=== PATIENT | female | born 1985 | race Caucasian/White ===

== ENCOUNTER 2016-12-04 14:07 | Emergency (ER) ==
--- NOTE | 2016-12-04 14:47 | PROVIDER DOCUMENTATION ---
HPI-Neurological Disorder - General Source: patient, family - History of Present Illness-Neuro Onset/Duration: reports: just prior to arrival Timing: reports: resolved prior to arrival Context: reports: seizure activity Cognitive Baseline: alert, oriented x3 Associated Symptoms: reports: headache, decreased ability to walk or stand, dizziness, nausea Similar Symptoms Previously?: Yes Recently seen or treated by another doctor?: Yes (Being treated by Dr. Holder) - Seizure First time to have a seizure?: No Witnessed seizure?: Yes How many seizure episodes?: 2 Duration of episode? (mins): 4 Episode Frequency: occasional episodes Preceding symptoms/context:: other (stress) Character of Seizure: reports: lost consciousness Seizure related injury: mouth (trauma to right lateral tongue) <Stephani Urias - Last Filed: 12/04/16 15:42> <Marcel Ortiz - Last Filed: 12/04/16 17:02> - General Chief Complaint: Seizure Stated Complaint: seizure Time Seen by Provider: 12/04/16 14:28 Allergies/Adverse Reactions: Patient Allergies Allergy/AdvReac Type Severity Reaction Status Date / Time erythromycin base Allergy Mild RASH Verified 12/04/16 14:11 [Erythromycin Base] ketorolac tromethamine * Allergy RASH Verified 12/04/16 14:11 [From Toradol] tramadol HCl * [From Ultram] Allergy Unknown Verified 12/04/16 14:11 vancomycin Allergy Unknown Verified 12/04/16 14:11 Home Medications: Home Medication List Medication Instructions Recorded Confirmed Last Taken Type Gabapentin [Neurontin] 300 mg PO DAILY #30 capsule 12/04/16 Unknown Rx - History of Present Illness-Neuro Nature of Presenting Problem: 30 year old female presents to the ER via EMS with complaint of seizure. Pt states she does not remember the seizure but mother states she started twitching , shaking, fell to the floor and had purple lips. Pt is complaining of headache and weakness. Has a history of seizures but this was the worst one yet. States she is out of her seizure medication and has been for over a year. (Stephani Urias) Review of Systems - Adult - REVIEW OF SYSTEMS - ADULT Constitutional: denies: chills, fever Neurological: reports: dizziness/vertigo, headache/migraines, seizure <Stephani Urias - Last Filed: 12/04/16 15:42> Past History - Adult - PAST MEDICAL HISTORY-ADULT Review of Records: reports: Nursing Assessment Review, Medications Reviewed Major Childhood Illnesses: reports: denies history Cardiovascular: reports: denies history Respiratory: reports: denies history Gastrointestinal: reports: denies history Obstetrical/Gynecological: reports: denies history Genitourinary: reports: denies history Musculoskeletal: reports: denies history Neurological: reports: Seizures/Epilepsy Endocrine/Immune: reports: denies history Other Conditions: reports: MRSA (hospitalized) - PRIOR SURGERIES/PROCEDURES Surgical/Procedure History: reports: BTL, tonsillectomy - IMMUNIZATION STATUS Childhood Immunizations: UTD, See Nurse Assessment Flu Vaccine: See Nurse Assessment - FAMILY HISTORY Family History: reviewed, not pertinent <Stephani Urias - Last Filed: 12/04/16 15:42> Physical Exam- Neurological - Physical Exam-Neuro General Appearance: alert, no apparent distress Eye Exam: bilateral eye: normal inspection, PERRL HENMT: moist mucous membranes, normal ENT inspection Head Injury: no evidence of injury. 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 Exam: normal hearing, normal speech Coordination/Gait: normal finger to nose, negative Romberg's sign Motor/Sensory: no motor deficit, no sensory deficit Neurologic: grossly normal, no motor/sensory deficits Integumentary: normal color, warm/dry Psych/Mental Status: normal mood/affect, normal thought content, normal thought process, oriented x 3 - Glascow Coma Scale Best Eye Response: (4) open spontaneously Best Verbal Response: (5) oriented Best Motor Response: (6) obeys commands <Stephani Urias - Last Filed: 12/04/16 15:42> Progress - REASSESSMENT Reassessment #1 Time Reassessed: 03:10 Status: worsening Reassessment Comment: Pt had 2nd seizure, lasted approx 1 min - EKG 1 Time of EKG reading by physician:: 15:16 EKG Read and Signed by:: Anastacio Perry EKG Interpretation (*Must complete 3 of following elements*): Normal Rate: 114 Rhythm: sinus tachycardia [place]: normal <Stephani Urias - Last Filed: 12/04/16 15:42> <Marcel Ortiz - Last Filed: 12/04/16 17:02> - PLAN OF CARE/RESULTS Progress/Plan/Lab Results: Laboratory Tests 12/04/16 12/04/16 12/04/16 14:53 14:53 15:30 WBC RBC Hgb Hct MCV MCH MCHC RDW Std Deviation Plt Count MPV Immature Gran % (Auto) Neut % (Auto) Lymph % (Auto) [place] % (Auto) Eos % (Auto) Baso % (Auto) Immature Gran # (Auto) Neut # (Auto) Lymph # (Auto) [place] # (Auto) Eos # (Auto) Baso # (Auto) PT INR APTT (Factor Assay) Sodium 137 Potassium 3.0 L Chloride 101 Carbon Dioxide 16 L Anion Gap 20 BUN 4 L Creatinine 0.7 Estimated GFR/1.73 m2 > 60 BUN/Creatinine Ratio 6 Glucose 120 H Calculated Osmolality 272 Calcium 9.3 Total Bilirubin 0.30 AST 16 ALT 13 Alkaline Phosphatase 61 Total Protein 7.1 Albumin 4.7 Globulin 2.0 Albumin/Globulin Ratio 2.0 Plasma Lactate Urine Source CLEAN CATCH Urine Color YELLOW Urine Clarity CLEAR Urine pH 7.0 Ur Specific [place] 1.015 Urine Protein NEGATIVE Urine Ketones NEGATIVE Urine Blood 1+ A Urine Nitrite NEGATIVE Urine Bilirubin NEGATIVE Urine Urobilinogen NORMAL Urine Microscopic RBC <10 Urine WBC NEGATIVE Urine Microscopic WBC <10 Ur Epithelial Cells <10 Urine Glucose NEGATIVE Urine Opiates Screen NONE DETECTED Ur Oxycodone Screen NONE DETECTED Urine Methadone Screen NONE DETECTED Ur Barbituates Screen NONE DETECTED Ur Tricyclics Screen NONE DETECTED Ur Phencyclidine Scrn NONE DETECTED Ur Amphetamines Screen PRESUMPTIVE POSITIVE A U Methamphetamines Scrn NONE DETECTED Urine MDMA Screen NONE DETECTED U Benzodiazepines Scrn PRESUMPTIVE POSITIVE A Urine Cocaine Screen NONE DETECTED U Cannabinoids Screen NONE DETECTED Plasma/Serum Ethyl Alc 12/04/16 12/04/16 12/04/16 15:30 15:30 15:30 WBC 9.36 RBC 4.19 L Hgb 13.4 Hct 40.0 MCV 95.5 MCH 32.0 H MCHC 33.5 RDW Std Deviation 12.3 Plt Count 295 MPV 11.7 H Immature Gran % (Auto) 0.1 Neut % (Auto) 75.9 H Lymph % (Auto) 19.1 L [place] % (Auto) 4.2 Eos % (Auto) 0.4 Baso % (Auto) 0.3 Immature Gran # (Auto) 0.01 Neut # (Auto) 7.10 H Lymph # (Auto) 1.79 [place] # (Auto) 0.39 Eos # (Auto) 0.04 Baso # (Auto) 0.03 PT 14.3 INR 1.08 APTT (Factor Assay) 28.8 Sodium Potassium Chloride Carbon Dioxide Anion Gap BUN Creatinine Estimated GFR/1.73 m2 BUN/Creatinine Ratio Glucose Calculated Osmolality Calcium Total Bilirubin AST ALT Alkaline Phosphatase Total Protein Albumin Globulin Albumin/Globulin Ratio Plasma Lactate Urine Source Urine Color Urine Clarity Urine pH Ur Specific [place] Urine Protein Urine Ketones Urine Blood Urine Nitrite Urine Bilirubin Urine Urobilinogen Urine Microscopic RBC Urine WBC Urine Microscopic WBC Ur Epithelial Cells Urine Glucose Urine Opiates Screen Ur Oxycodone Screen Urine Methadone Screen Ur Barbituates Screen Ur Tricyclics Screen Ur Phencyclidine Scrn Ur Amphetamines Screen U Methamphetamines Scrn Urine MDMA Screen U Benzodiazepines Scrn Urine Cocaine Screen U Cannabinoids Screen Plasma/Serum Ethyl Alc 12/04/16 15:38 WBC RBC Hgb Hct MCV MCH MCHC RDW Std Deviation Plt Count MPV Immature Gran % (Auto) Neut % (Auto) Lymph % (Auto) [place] % (Auto) Eos % (Auto) Baso % (Auto) Immature Gran # (Auto) Neut # (Auto) Lymph # (Auto) [place] # (Auto) Eos # (Auto) Baso # (Auto) PT INR APTT (Factor Assay) Sodium Potassium Chloride Carbon Dioxide Anion Gap BUN Creatinine Estimated GFR/1.73 m2 BUN/Creatinine Ratio Glucose Calculated Osmolality Calcium Total Bilirubin AST ALT Alkaline Phosphatase Total Protein Albumin Globulin Albumin/Globulin Ratio Plasma Lactate 4.0 H Urine Source Urine Color Urine Clarity Urine pH Ur Specific [place] Urine Protein Urine Ketones Urine Blood Urine Nitrite Urine Bilirubin Urine Urobilinogen Urine Microscopic RBC Urine WBC Urine Microscopic WBC Ur Epithelial Cells Urine Glucose Urine Opiates Screen Ur Oxycodone Screen Urine Methadone Screen Ur Barbituates Screen Ur Tricyclics Screen Ur Phencyclidine Scrn Ur Amphetamines Screen U Methamphetamines Scrn Urine MDMA Screen U Benzodiazepines Scrn Urine Cocaine Screen U Cannabinoids Screen Plasma/Serum Ethyl Alc Orders Category Date Time Status Cardiac Monitoring DIRECTED Care 12/04/16 14:43 Active Finger Stick Blood Sugar (ED) DIRECTED Care 12/04/16 14:43 Active Saline Loc NOW Care 12/04/16 14:43 Active HEAD W/O CONTRAST [CT] Stat Exams 12/04/16 15:18 Taken ALCOHOL BLOOD Stat Lab 12/04/16 15:30 Completed CBC WITH ELECTRONIC DIFF [HEME] Stat Lab 12/04/16 15:30 Completed COMPREHENSIVE METABOLIC PANEL [CHEM] Stat Lab 12/04/16 15:30 Completed LACTATE, PLASMA [CHEM] Stat Lab 12/04/16 15:38 Completed PROTIME WITH INR PL [COAG] Stat Lab 12/04/16 15:[address] [COAG] Stat Lab 12/04/16 15:[address] W/POSS RFLX CULT [URINALYSIS] Stat Lab 12/04/16 14:53 Completed URINE DRUG SCREEN PL Stat Lab 12/04/16 14:53 Completed 0.9% Sodium Chloride Inj [Ns] 1,000 ml Med 12/04/16 15:32 Discontinued IV 999 mls/hr 0.9% Sodium Chloride Inj [Ns] 1,000 ml Med 12/04/16 16:55 Active IV 999 mls/hr Gabapentin [Neurontin] Med 12/04/16 16:58 Discontinued 300 mg PO NOW ONE Lorazepam [Ativan] Med 12/04/16 15:11 Discontinued 2 mg .ROUTE .STK-MED ONE Potassium Chloride 20% Liquid Med 12/04/16 16:41 Discontinued 40 meq .ROUTE .STK-MED ONE Potassium Chloride 20% Liquid Med 12/04/16 16:48 Discontinued 40 meq PO NOW ONE Potassium Chloride E.r. [Klor-Con] Med 12/04/16 16:14 Discontinued 40 meq PO NOW ONE Pulse Oximetry Stat Oth 12/04/16 14:43 Active EKG [EKG] Stat Ther 12/04/16 14:43 Draft Vital Signs - 24 hr 12/04/16 14:08 Temperature 98 F Pulse Rate 124 H Respiratory 20 Rate Blood Pressure 124/76 O2 Sat by Pulse 100 Oximetry Reviewed case with Dr. Perry, he went to bedside to evaluate pt, agrees with dc home, give first dose neurontin here and rxn for 1 month's worth. (Marcel Ortiz) Departure <Stephani Urias - Last Filed: 12/04/16 15:42> - Departure Time of Disposition Order: 16:59 Certified Medical Emergency: Emergent <Marcel Ortiz - Last Filed: 12/04/16 17:02> - Departure DIAGNOSIS: Seizure, Hypokalemia Disposition: HOME 01 Condition: Stable Additional Instructions: Follow up with Dr. Holder as soon as possible. Take your neurontin as prescribed. ED Follow Up Instructions: You have been treated by a care provider in the Emergency Department. These instructions are being provided to you so you can have an understanding of how to care for yourself upon discharge. Upon discharge from the Emergency Department, you are responsible for making arrangements for follow-up care by a physician of your choice. Take all prescribed medications as directed. Return to the Emergency Department immediately for any new or worsening symptoms. You may call the Physician Referral phone number at [phone] to obtain a list of Physicians who are taking new patients. Prescriptions: Gabapentin [Neurontin] 300 mg PO DAILY #30 capsule Referrals: None,PCP [Primary Care Provider] - [facility] [NON-[facility]FF] - Glory FUENTES,Mari Calvo MD [STAFF PHYSICIAN] - Attestation - Scribe Verification/Attestation Scribe:: Stephani Urias Acting as Scribe for:: Marcel Ortiz Scribe documention review:: This chart was documented by a scribe and accurately reflects the service the provider performed and the decisions made by the provider. <Stephani Urias - Last Filed: 12/04/16 15:42> - Physician/ DAMARIS Attestation Patient care was provided by Advanced Practice Provider:: Yes Advanced Practice Provider:: Marcel Ortiz Advanced Practice Provider documentation review:: The Mid-level provider documentation, treatment plan and medical decision making was reviewed by the physician who agrees with all treatment and medical decision making by the [facility]. <Marcel Ortiz - Last Filed: 12/04/16 17:02> Physician Attestation
[2016-12-04 14:59] LABS: URINE CULTURE PL NEEDED? NO; URINE SOURCE CLEAN CATCH
[2016-12-04 15:10] LABS: UR AMPHETAMINES QUAL PRESUMPTIVE POSITIVE (NONE DETECT); UR BARBITUATES QUAL NONE DETECTED (NONE DETECT); UR BENZODIAZEPIN QUAL PRESUMPTIVE POSITIVE (NONE DETECT); UR CANNABINOIDS QUAL NONE DETECTED (NONE DETECT); UR COCAINE QUAL NONE DETECTED (NONE DETECT); UR MDMA QUAL NONE DETECTED (NONE DETECT); UR METHADONE QUAL NONE DETECTED (NONE DETECT); UR METHAMPHETAMINE QUAL NONE DETECTED (NONE DETECT); UR OPIATES QUAL NONE DETECTED (NONE DETECT); UR OXYCODONE QUAL NONE DETECTED (NONE DETECT); UR PCP QUAL NONE DETECTED (NONE DETECT); UR TCA QUAL NONE DETECTED (NONE DETECT)
[2016-12-04] MEDS ORDERED: ATIVAN ONE (15:11)
[2016-12-04 15:24] LABS: BILIRUBIN URINE NEGATIVE (NEGATIVE); BLOOD URINE 1+ (NEGATIVE); CLARITY CLEAR (CLEAR); COLOR YELLOW; GLUCOSE URINE NEGATIVE (NEGATIVE); LEUKOCYTES URINE NEGATIVE (NEGATIVE); NITRITE URINE NEGATIVE (NEGATIVE); PROTEIN URINE NEGATIVE (NEGATIVE); SP GRAVITY URINE 1.015; UROBILINOGEN URINE NORMAL
[2016-12-04 15:26] LABS: URINE WBC <10 /HPF (<10)
[2016-12-04 15:27] LABS: URINE EPITHELIAL CELLS <10 /HPF (<10); URINE RBC <10 /HPF (<10)
[2016-12-04 15:32] LABS: MANUAL DIFF NEEDED? NO
[2016-12-04] MEDS ORDERED: NS 1,000 ML IV ONE ×2 (15:32→16:55)
[2016-12-04 15:38] LABS: BASO% 0.3 % (0.0-0.8); EOS# 0.04 X1000 (0.0-0.7); EOS% 0.4 % (0.0-10.0); HEMOGLOBIN 13.4 g/dL (12.0-16.0); IMM GRAN# 0.01 X1000 (0.0-0.04); IMM GRAN% 0.1 % (0.0-0.5); LYMPH# 1.79 X1000 (1.2-3.4); LYMPH% 19.1 % (20.5-51.1); MCHC 33.5 g/dL (33-37); MCV 95.5 FL (81-99); MONO# 0.39 X1000 (0.11-0.59); MONO% 4.2 % (1.7-9.3); MPV 11.7 FL (7.4-10.4); NEUT% 75.9 % (42.2-75.2); PLT 295 X1000 (130-400); RBC 4.19 XMIL (4.2-5.4)
--- NOTE | 2016-12-04 15:46 | EKG Report ---
Test Performed on : 12/04/2016 3:16:41 PM Test Reason : AMS Blood Pressure : / mmHG Vent. Rate : 114 BPM Atrial Rate : 114 BPM P-R Int : 172 ms QRS Dur : 084 ms QT Int : 320 ms P-R-T Axes : 065 053 036 degrees QTc Int : 441 ms Sinus tachycardia. Otherwise normal ECG No previous ECGs available Unconfirmed Result
[2016-12-04 15:52] LABS: INR 1.08 (0.86-1.15); PROTIME 14.3 Seconds (12.1-15.5)
[2016-12-04 15:53] LABS: PTT PL 28.8 Seconds (22.6-43.9)
[2016-12-04 16:01] LABS: AGAP 20; ALBUMIN 4.7 g/dL (3.5-5.0); ALKALINE PHOSPHATASE 61 U/L (32-104); BUN 4 mg/dL (8-22); CALCIUM 9.3 mg/dL (8.8-10.2); CHLORIDE 101 mmol/L (98-107); COSMO 272; GOT 16 U/L (10-30); GPT 13 U/L (10-36); SODIUM 137 mmol/L (136-145); TCO2 16 mmol/L (25-35); TOTAL PROTEIN 7.1 g/dL (6.3-8.3)
[2016-12-04] MEDS ORDERED: KLOR-CON PO ONE (16:14)
[2016-12-04] MEDS ORDERED: POTASSIUM CHLORIDE 20% LIQUID ONE (16:41)
[2016-12-04] MEDS ORDERED: POTASSIUM CHLORIDE 20% LIQUID PO ONE (16:48)
[2016-12-04] MEDS ORDERED: NEURONTIN PO ONE (16:58)
--- NOTE | 2016-12-04 17:16 | Diag Imaging Result Document ---
PROCEDURE NAME: HEAD W/O CONTRAST - 12/04/2016 CT HEAD WITHOUT CONTRAST: FINDINGS: A dose reduction protocol was used. Compared with 11/01/2016. There is no evidence of intracranial hemorrhage, mass effect, midline shift, or hydrocephalus. There is no evidence of infarct, although acute infarcts may not be immediately visible. There is no skull fracture. There is mild paranasal sinus disease noted. IMPRESSION: 1. No visible acute intracranial abnormality. 2. No hemorrhage or mass effect. 3. There is mild paranasal sinus disease noted.
[2016-12-04] MEDS ORDERED: MOTRIN LIQUID ONE (17:24)
[2016-12-04] MEDS ORDERED: MOTRIN LIQUID PO ONE (17:29)
[2016-12-04 18:37] VITALS: BP 120/86
== END 2016-12-04 18:37 | disposition home or self-care (01) ==
LOC: P.ED 14:07
DX: R56.9 Unspecified convulsions (principal); E87.6 Hypokalemia; J32.9 Chronic sinusitis, unspecified; R51 Headache; R42 Dizziness and giddiness; R11.0 Nausea; R53.1 Weakness; Z86.14 Personal history of Methicillin resistant Staphylococcus aureus infection
CPT/HCPCS: 70450; 80053; 80305; 81001; 82948; 83605; 85025; 85610; 85730; 93005; G0480; J2060; J7030; 80320

== ENCOUNTER 2016-12-16 14:22 | Emergency (ER) ==
--- NOTE | 2016-12-16 15:47 | PROVIDER DOCUMENTATION ---
HPI-Neurological Disorder - General Source: patient <Stephani Travis - Last Filed: 12/16/16 17:23> <Olu Sharma I - Last Filed: 12/16/16 17:51> - General Chief Complaint: Seizure Stated Complaint: seizure Time Seen by Provider: 12/16/16 15:41 Allergies/Adverse Reactions: Patient Allergies Allergy/AdvReac Type Severity Reaction Status Date / Time vancomycin Allergy Severe RASH Verified 12/16/16 14:45 erythromycin base Allergy Mild RASH Verified 12/16/16 14:45 [Erythromycin Base] ketorolac tromethamine * AdvReac Severe SEIZURES Verified 12/16/16 14:45 [From Toradol] tramadol HCl * [From Ultram] AdvReac Severe LOWERS Verified 12/16/16 14:45 SEIZURE THRESHOLD Home Medications: Home Medication List Medication Instructions Recorded Confirmed Last Taken Type Gabapentin [Neurontin] 300 mg PO DAILY #30 capsule 12/04/16 12/16/16 12/16/16 Rx Phenytoin [Dilantin] 100 mg PO TID #90 capsule 12/16/16 Unknown Rx - History of Present Illness-Neuro Nature of Presenting Problem: 30 y/o F presents to ED cc of seizure. The seizure was witnessed by friend. Pt does have history of seizures. Pt states she has been taking all medication regularly. Friend states pt had blood running down her face due to biting her tongue. Pt states she woke up this morning and not feeling well. Pt does have perkins on tongue from biting it. Pt and pt friend states she has ran out of one medication and they could not remember the name of it. (Stephani Travis) Review of Systems - Adult - REVIEW OF SYSTEMS - ADULT Constitutional: denies: chills, fever Eyes: denies: discharge, dry eyes Ears, Nose, Mouth & Throat: reports: other (perkins on tongue due to biting). denies: ear pain, throat pain Cardiovascular: denies: chest pain, palpitations Respiratory: denies: cough, shortness of breath Gastrointestinal: denies: abdominal pain, diarrhea, nausea, vomiting Genitourinary: denies: discharge, frequency Musculoskeletal: denies: bone pain, back pain Neurological: reports: headache/migraines, seizure. denies: dizziness/vertigo, numbness, slurred speech <Stephani Travis - Last Filed: 12/16/16 17:23> Past History - Adult - PAST MEDICAL HISTORY-ADULT Review of Records: reports: Old Records Reviewed, Nursing Assessment Review Neurological: reports: Seizures/Epilepsy Other Conditions: reports: MRSA (hospitalized) - PRIOR SURGERIES/PROCEDURES Surgical/Procedure History: reports: BTL, tonsillectomy - IMMUNIZATION STATUS Childhood Immunizations: UTD, See Nurse Assessment Flu Vaccine: See Nurse Assessment - FAMILY HISTORY Family History: reviewed, not pertinent - SOCIAL HISTORY Smoking: non-smoker Substance Use: denies <Stephani Travis - Last Filed: 12/16/16 17:23> Physical Exam- Neurological - Physical Exam-Neuro Initial Vital Signs Reviewed: Yes General Appearance: appears well, alert, no apparent distress HENMT: normocephalic/atraumatic, moist mucous membranes, normal ENT inspection, other (PERKINS ON TONGUE FORM BITIING) Head Injury: no evidence of injury Neck: non-tender, full range of motion Respiratory: chest non-tender, lungs clear, normal breath sounds Cardiovascular: normal peripheral pulses, no edema, tachycardia Abdominal Exam: normal bowel sounds, non tender, soft Lymphatic: no adenopathy Extremity: normal range of motion, non-tender, 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, normal speech Motor/Sensory: no motor deficit, no sensory deficit, no pronator drift Neurologic: 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 instructor II-XII nml as tested, grossly normal Integumentary: normal color, normal turgor, warm/dry Psych/Mental Status: normal mood/affect, normal thought content, normal thought process, oriented x 3 - Glascow Coma Scale Best Eye Response: (4) open spontaneously Best Verbal Response: (5) oriented Best Motor Response: (6) obeys commands Total Glascow Score: 15 <Stephani Travis - Last Filed: 12/16/16 17:23> Progress <Stephani Travis - Last Filed: 12/16/16 17:23> <Olu Sharma I - Last Filed: 12/16/16 17:51> - PLAN OF CARE/RESULTS Progress/Plan/Lab Results: PT STATES SHE HAS BEEN TAKING DILANTIN FOR HER SEIZURES. DENIES MISSING THE MEDICATION BUT STATES SHE IS OUT OF ONE BUT DOES NOT KNOW THE NAME. THE NURSE NOTIFIES THAT PT RELAYED TO HER THAT SHE HAS NOT GOTTEN THE DILANTIN FILLED DUE TO COSTING TO [facility] AND WAS PLACED ON NEURONTIN ON THE November DUE TO [facility] ED. PT DOES NOT HAVE PRIMARY CARE / NEUROLOGIST LABS HAVE BEEN REVIEWED BY . MORE MEDICATIONS HAVE BEEN ORDERED. PT WILL BE DISCHARGED HOME Laboratory Tests 12/16/16 12/16/16 12/16/16 14:45 14:45 14:45 WBC 10.96 H RBC 4.45 Hgb 14.5 Hct 43.1 MCV 96.9 MCH 32.6 H MCHC 33.6 RDW Std Deviation 12.4 Plt Count 397 MPV 11.8 H Immature Gran % (Auto) 0.2 Neut % (Auto) 78.1 H Lymph % (Auto) 15.4 L [place] % (Auto) 4.2 Eos % (Auto) 1.8 Baso % (Auto) 0.3 Immature Gran # (Auto) 0.02 Neut # (Auto) 8.56 H Lymph # (Auto) 1.69 [place] # (Auto) 0.46 Eos # (Auto) 0.20 Baso # (Auto) 0.03 Sodium Potassium Chloride Carbon Dioxide Anion Gap BUN Creatinine Estimated GFR/1.73 m2 BUN/Creatinine Ratio Glucose Calculated Osmolality Calcium Total Bilirubin AST ALT Alkaline Phosphatase Total Protein Albumin Globulin Albumin/Globulin Ratio Urine Test NEGATIVE Urine Opiates Screen NONE DETECTED Ur Oxycodone Screen NONE DETECTED Ur Methadone, Qual NONE DETECTED Ur Barbiturates Screen NONE DETECTED Total Phenytoin Ur Phencyclidine Scrn NONE DETECTED Ur Amphetamines Screen NONE DETECTED U Benzodiazepines Scrn PRESUMPTIVE POSITIVE A Urine Cocaine Screen NONE DETECTED U Cannabinoids Screen NONE DETECTED 12/16/16 14:45 WBC RBC Hgb Hct MCV MCH MCHC RDW Std Deviation Plt Count MPV Immature Gran % (Auto) Neut % (Auto) Lymph % (Auto) [place] % (Auto) Eos % (Auto) Baso % (Auto) Immature Gran # (Auto) Neut # (Auto) Lymph # (Auto) [place] # (Auto) Eos # (Auto) Baso # (Auto) Sodium 139 Potassium 3.7 Chloride 97 L Carbon Dioxide 27 Anion Gap 15 BUN 6 L Creatinine 0.6 Estimated GFR/1.73 m2 > 60 BUN/Creatinine Ratio 10 Glucose 82 Calculated Osmolality 274 Calcium 9.5 Total Bilirubin 0.27 AST 18 ALT 19 Alkaline Phosphatase 79 Total Protein 7.6 Albumin 4.7 Globulin 2.9 Albumin/Globulin Ratio 1.6 Urine Test Urine Opiates Screen Ur Oxycodone Screen Ur Methadone, Qual Ur Barbiturates Screen Total Phenytoin < 0.80 L Ur Phencyclidine Scrn Ur Amphetamines Screen U Benzodiazepines Scrn Urine Cocaine Screen U Cannabinoids Screen Orders Category Date Time Status CBC WITH DIFF [HEME] Stat Lab 12/16/16 16:18 Ordered CBC WITH ELECTRONIC DIFF [HEME] Stat Lab 12/16/16 14:45 Completed COMPREHENSIVE METABOLIC PANEL [CHEM] Stat Lab 12/16/16 14:45 Completed PHENYTOIN [TDM] Stat Lab 12/16/16 14:45 Completed TEST-URINE [PREG] Stat Lab 12/16/16 14:45 Completed URINE DRUG SCREEN Stat Lab 12/16/16 14:45 Completed Fosphenytoin [Cerebyx] 0 mg Med 12/16/16 17:22 Ordered 0.9% Sodium Chloride Inj [Ns] 50 ml IV ONCE Vital Signs - 24 hr 12/16/16 14:43 Temperature 98.0 F Pulse Rate 108 H Respiratory 20 Rate Blood Pressure 128/68 O2 Sat by Pulse 100 Oximetry (Stephani Travis) Departure - Departure Time of Disposition Order: 17:23 Certified Medical Emergency: Emergent <Stephani Travis - Last Filed: 12/16/16 17:23> - Departure Time of Disposition Order: 17:48 Certified Medical Emergency: Emergent <Olu Sharma I - Last Filed: 12/16/16 17:51> - Departure DIAGNOSIS: Medical non-compliance, Seizures Disposition: HOME 01 Condition: Stable Additional Instructions: ED Follow Up Instructions: You have been treated by a care provider in the Emergency Department. These instructions are being provided to you so you can have an understanding of how to care for yourself upon discharge. Upon discharge from the Emergency Department, you are responsible for making arrangements for follow-up care by a physician of your choice. Take all prescribed medications as directed. Return to the Emergency Department immediately for any new or worsening symptoms. You may call the Physician Referral phone number at [phone] to obtain a list of Physicians who are taking new patients. Prescriptions: Phenytoin [Dilantin] 100 mg PO TID #90 capsule Referrals: None,PCP [Primary Care Provider] - Attestation - Scribe Verification/Attestation Scribe:: Stephani Travis Acting as Scribe for:: Olu Sharma Scribe documention review:: This chart was documented by a scribe and accurately reflects the service the provider performed and the decisions made by the provider. <Stephani Travis - Last Filed: 12/16/16 17:23> - Physician/ DAMARIS Attestation Patient care was provided by Advanced Practice Provider:: Yes Advanced Practice Provider documentation review:: The Mid-level provider documentation, treatment plan and medical decision making was reviewed by the physician who agrees with all treatment and medical decision making by the MLP. The physician spent face to face time with patient:: Yes Advanced Practice Provider documentation review:: The physician spent face to face time with this patient and agrees with all MLP documentation, treatment, and medical decision making by the MLP. See provider notes for further information. <Olu Sharma I - Last Filed: 12/16/16 17:51> Physician Attestation - Physician Attestation I, the provider, attest to the following statement:: Olu Sharma Physician documentation Attestation:: This documentation recorded by the scribe accurately reflects the service I personally performed and the decisions made by me. <Stephani Travis - Last Filed: 12/16/16 17:23> - Physician Attestation I, the provider, attest to the following statement:: Olu Sharma Physician documentation Attestation:: This documentation recorded by the scribe accurately reflects the service I personally performed and the decisions made by me. <Olu Sharma I - Last Filed: 12/16/16 17:51>
[2016-12-16 15:53] LABS: MANUAL DIFF NEEDED? NO
[2016-12-16 15:59] LABS: BASO% 0.3 % (0.0-0.8); EOS% 1.8 % (0.0-10.0); HEMATOCRIT 43.1 % (37.0-47.0); HEMOGLOBIN 14.5 g/dL (12.0-16.0); IMM GRAN# 0.02 X1000 (0.0-0.04); IMM GRAN% 0.2 % (0.0-0.5); LYMPH# 1.69 X1000 (1.2-3.4); LYMPH% 15.4 % (20.5-51.1); MCH 32.6 PG (27-31); MCHC 33.6 g/dL (33-37); MCV 96.9 FL (81-99); MONO# 0.46 X1000 (0.11-0.59); MONO% 4.2 % (1.7-9.3); MPV 11.8 FL (7.4-10.4); NEUT% 78.1 % (42.2-75.2); PLT 397 X1000 (130-400); RBC 4.45 XMIL (4.2-5.4)
[2016-12-16 16:15] LABS: AGAP 15; ALBUMIN 4.7 g/dL (3.5-5.0); ALKALINE PHOSPHATASE 79 U/L (32-104); BUN 6 mg/dL (8-22); CALCIUM 9.5 mg/dL (8.8-10.2); CHLORIDE 97 mmol/L (98-107); COSMO 274; GOT 18 U/L (10-30); GPT 19 U/L (10-36); POTASSIUM 3.7 mmol/L (3.5-5.1); SODIUM 139 mmol/L (136-145); TCO2 27 mmol/L (25-35); TOTAL BILIRUBIN 0.27 mg/dL (0.20-1.00); TOTAL PROTEIN 7.6 g/dL (6.3-8.3)
[2016-12-16 16:18] LABS: UR AMPHETAMINES QUAL NONE DETECTED (NONE DETECT); UR BARBITUATES QUAL NONE DETECTED (NONE DETECT); UR BENZODIAZEPIN QUAL PRESUMPTIVE POSITIVE (NONE DETECT); UR CANNABINOIDS QUAL NONE DETECTED (NONE DETECT); UR COCAINE QUAL NONE DETECTED (NONE DETECT); UR METHADONE QUAL NONE DETECTED (NONE DETECT); UR OPIATES QUAL NONE DETECTED (NONE DETECT); UR OXYCODONE QUAL NONE DETECTED (NONE DETECT); UR PCP QUAL NONE DETECTED (NONE DETECT)
[2016-12-16] MEDS ORDERED: CEREBYX IV ONE (17:22)
[2016-12-16] MEDS ORDERED: NS IV ONE (17:22)
[2016-12-16] MEDS ORDERED: BENADRYL IV ONE (18:22)
[2016-12-16 19:26] VITALS: BP 118/73
== END 2016-12-16 19:36 | disposition home or self-care (01) ==
LOC: EDBD → ED 14:22
DX: R56.9 Unspecified convulsions (principal); Z91.14 Patient's other noncompliance with medication regimen; R51 Headache; Z86.14 Personal history of Methicillin resistant Staphylococcus aureus infection; Z79.899 Other long term (current) drug therapy
CPT/HCPCS: 80053; 80185; 81025; 85025; G0480; J1200; Q2009; 80324; 80345; 80346; 80349; 80353; 80358; 80361; 80365; 83992